=== PATIENT | female | born 1965 | race Caucasian/White ===

== ENCOUNTER 2021-06-12 09:35 | Emergency (ER) | payer OTHER, SELFPAY ==
--- NOTE | ~2021-06-12 | XR_ITS ---
EXAMINATION: XR KNEE, LEFT CLINICAL INFORMATION: Knee pain. COMPARISON: None TECHNIQUE: Four views of the left knee. FINDINGS: The tricompartment joint space is maintained normal. There is no visible fracture, dislocation or loose bodies. No joint effusion seen. The soft tissues are normal. XR/XR knee LT 3V IMPRESSION: Unremarkable left knee exam.
[2021-06-12 09:40] VITALS: BP 156/84; PULSE 72; RESP 19; TEMP 36.6; O2SAT 99; BMI 32.8
--- NOTE | 2021-06-12 11:08 | ED_ITS ---
HPI - General Adult General Chief complaint: Extremity Injury, Lower Stated complaint: knee pain Time Seen by Provider: 06/12/21 11:08 Source: patient Limitations: no limitations History of Present Illness HPI narrative: Patient presents the ER with atraumatic left knee pain. Pain increases with ambulation and going up the stairs. Patient states symptoms have been ongoing for some time now. Pain is aching in nature. Pain 6/10. Patient does take Percocet regularly for chronic back pain. Patient has a planned follow-up for the knee. No other complaints at this time symptoms are [id number]. Related Data Previous Rx's Medication Instructions Recorded naproxen 500 mg tablet 500 mg PO BID PRN #20 tab 06/12/21 Allergies Allergy/AdvReac Type Severity Reaction Status Date / Time No Known Allergies Allergy Unverified 03/07/20 18:42 Review of Systems Constitutional: Constitutional: Denies body ache(s), Denies chills, Denies fever(s) and Denies headache(s) ENT: Denies headache(s) Cardiovascular: Cardiovascular: Denies chest pain and Denies dyspnea Respiratory: Respiratory: Denies dyspnea Gastrointestinal: Gastrointestinal: Denies nausea and Denies vomiting Musculoskeletal: Musculoskeletal: Reports arthralgias Comments: Left knee pain Neurologic: Denies headache(s) [facility] Past Medical History Attestation statement: The following information was validated with the patient. Medical History Asthma Depression High cholesterol Social History Social History Advance Directives: No Advance Directives Information Provided: Yes Patient : No Physical Exam Vital Signs: Vital Signs: Last Vital Signs Temp 98 F 06/12/21 09:40 Pulse 72 06/12/21 09:40 Resp 19 06/12/21 09:40 BP 156/84 H 06/12/21 09:40 Pulse Ox 99 06/12/21 09:40 BMI result Body Mass Index 32.8 vital signs have been reviewed as normal and appeared to be correct. Blood pressure normal. Heart rate normal. Respiration rate normal. Temperature normal. Oxygen saturation normal. Appearance: Alert. Oriented X3. No acute distress. Head: Normal external exam. Normocephalic. Atraumatic. Eyes: PERRLA. EOMI. Conjunctiva and sclera normal. Eyelids normal. ENT: Pharynx normal. Uvula midline. Moist mucous membranes. Neck: Soft full range of motion, no JVD CVS: Heart regular rate and rhythm no murmurs and rubs Respiratory: Breath sounds are clear to auscultation bilaterally. No accessory muscle use noted. Back: Full range of motion noted. Skin: Skin warm and dry. Normal skin color. No erythema noted in the left knee Extremities: Positive joint line tenderness left knee no crepitus positive range of motion no obvious effusion noted Neuro: Oriented X 3. No motor deficit. No sensory deficit. Reflexes normal. Course Course Course Narrative: Left knee arthritis Left knee pain Gouty arthritis Osteoarthritis Symptoms are consistent with chronic knee pain patient has planned follow-up with specialist. Patient is already on analgesics for chronic back pain. Will add Naprosyn at this time. Medical Decision Making Imaging Data knee: Radiologist's impression: [address] [address] XRay Report Signed Patient: Kadi Matthews MR#: [id number] : 1965 Acct:[id number] Age/Sex: 56 / F ADM Date: 06/12/21 Loc: HO.ED Attending Dr: Ordering Physician: Generic ED Physician Date of Service: 06/12/21 Procedure(s): XR knee LT 3V Accession Number(s): [id number] cc: Generic ED Physician~ EXAMINATION: XR KNEE, LEFT CLINICAL INFORMATION: Knee pain.? COMPARISON: None? TECHNIQUE: Four views of the left knee. FINDINGS: The tricompartment joint space is maintained normal. There is no visible fracture, dislocation or loose bodies. No joint effusion seen. The soft tissues are normal.? XR/XR knee LT 3V IMPRESSION: Unremarkable left knee exam. ? Dictated By: Gabe Bennett MD Signed By: <Electronically signed by Gabe Bennett MD in OV> 06/12/21 1005 DD/ 1001 TD/TT:? Gis Geographer: [facility] [place] Discharge Plan Discharge Clinical Impression: Knee pain Patient Disposition: Home, Self-Care Instructions: Knee Pain (ED) Additional Instructions: Rest ice elevation follow-up with her doctor as planned. Prescriptions: New naproxen 500 mg tablet 500 mg PO BID PRN (Reason: pain) Qty: 20 RF: 0
== END 2021-06-12 12:31 | disposition home or self-care (01) ==
LOC: HO.ED 11:21
PROVIDERS: Emergency Provider Emergency Medicine
DX: M25.562 Pain in left knee (principal); G89.29 Other chronic pain; M54.9 Dorsalgia, unspecified; Z79.891 Long term (current) use of opiate analgesic
CPT/HCPCS: 73562; 99283

== ENCOUNTER 2021-07-01 | Outpatient (REF) | payer OTHER, SELFPAY ==
[2021-07-01 13:55] LABS: Binax Internal Control QC Valid; Binax Now Covid-19 Ag Negative (Negative)
== END 2021-07-01 00:01 ==
LOC: HO.LAB
PROVIDERS: Visit Provider Internal Medicine
DX: Z20.822 Contact with and (suspected) exposure to COVID-19 (principal)
CPT/HCPCS: C9803

== ENCOUNTER 2022-01-12 13:15 | Emergency (ER) | payer OTHER, SELFPAY ==
--- NOTE | ~2022-01-12 | XR_ITS ---
EXAMINATION: XR KNEE, RIGHT CLINICAL INFORMATION: Pain after falling COMPARISON: None TECHNIQUE: Four views of the right knee. FINDINGS: There is no fracture, dislocation or destructive lesion or joint effusion. XR/XR knee RT 4V IMPRESSION: Negative
[2022-01-12 13:31] VITALS: BP 134/83; PULSE 87; RESP 18; TEMP 37; O2SAT 98; BMI 29.8
--- NOTE | 2022-01-12 17:30 | ED_ITS ---
HPI - General Adult General Chief complaint: General Medical Stated complaint: Injuries to both legs Time Seen by Provider: 01/12/22 14:53 Source: patient Mode of arrival: ambulatory Limitations: no limitations History of Present Illness HPI narrative: 56 y/o female with history of chronic pain on chronic opiates, asthma, depression, HLD who presents to the ER with 1 week of bilateral knee pain R>L after slipping and falling in the shower. She reports chronic left knee pain and has had surgery on that knee in the past at [facility]. She states the pain in her right knee is in the middle and back of her knee, and is worse at night when she tries to go to sleep. She has been ambulating well. She has been taking her prescribed percocet for pain. She reports no relief with tylenol or naproxen. MD complaint: knee pain Onset (ago): week(s) (1) Location: left, right and lower extremity Radiation: non-radiation Severity: moderate Severity scale (1-10): 6 Quality: aching Pain Consistency: constant Relieving factors: none Exacerbating factors: movement and other (nighttime) Associated symptoms: denies other symptoms Treatments prior to arrival: none Related Data Previous Rx's Medication Instructions Recorded naproxen 500 mg tablet 500 mg PO BID PRN pain #20 tabs 06/12/21 ibuprofen 600 mg tablet 600 mg PO Q8H PRN pain #20 tabs 01/12/22 Allergies Allergy/AdvReac Type Severity Reaction Status Date / Time No Known Allergies Allergy Unverified 03/07/20 18:42 Review of Systems Review of Systems: Constitutional: No Fever, No Chills ENT/Mouth: No sore throat, No Rhinorrhea Cardiovascular: No Chest Pain, No SOB Gastrointestinal: No Nausea, No Vomiting Musculoskeletal: + joint pain, No Myalgias Skin: No Skin Lesions, No rash Neuro: No Weakness, No Numbness Heme/Lymph: No Bruising, No Lymphadenopathy PMFSH Past Medical History Medical History Asthma Depression High cholesterol Social History Social History Advance Directives: No Advance Directives Information Provided: No Physical Exam ED Vital Signs: Vital Signs - 24 hr 01/12/22 13:31 Temperature 98.6 F Pulse Rate 87 Respiratory Rate 18 Blood Pressure 134/83 Pulse Oximetry 98 Oxygen Delivery Method Room Air BMI result Body Mass Index 29.8 Appearance: Alert. Oriented X3. No acute distress. HEENT: pupils pinpoint otherwise normal to inspection CVS: Normal heart rate and rhythm. Pulses normal. Respiratory: No respiratory distress. Skin: Skin warm and dry. Normal skin color. Normal skin turgor. No rashes. Extremities: normal inspection of the bilateral knees. negative anterior drawer, varus/valgus negative. tenderness of the medial joint line. no palpable masses in the popliteal fossa. no calf tenderness or swelling. distal pulses 2+ Neuro: Oriented X 3. No motor deficit. No sensory deficit. Steady gait. Course Course Course Narrative: 56 yo female presenting wtih bilateral knee pain R>L after she slipping and fell in the bathtub last week. Exam is unremarkable without any obvious swelling or deformity. No appreciated joint laxity. Her XR is normal. No clincial evidence of DVT. She has an orthopedic provider at [facility] and was encouraged to f/u with them. She is ambulatory. Will give trial of NSAID and refer to Ortho. Stable for d/c home. Critical Care Time Critical Care Time Critical Care Time: No Discharge Plan Discharge Clinical Impression: Knee pain, right Patient Disposition: Home, Self-Care Instructions: Knee Pain (ED) Additional Instructions: Your x-ray today was normal. Recommend trial of ibuprofen 600 mg every 6 hours - take with food. Recommend icing the area several times per day and elevating your knee when possible. Follow up with your Orthopedic provider at [facility] in [place]. If you are unable to see them, call the Orthopedic provider below to arrange to be seen. If you develop new or worsening symptoms call 911 or come back to the ER for further evaluation. Prescriptions: New ibuprofen 600 mg tablet 600 mg PO Q8H PRN (Reason: pain) Qty: 20 0RF No Action naproxen 500 mg tablet 500 mg PO BID PRN (Reason: pain) Qty: 20 0RF Referrals: Alan Hernandez MD [Physician] - (right knee pain) Interventions: ED Discharge Assessment Last Done: 01/12/22 18:02 Discharge Date/Time: 01/12/22 18:03
== END 2022-01-12 18:03 | disposition home or self-care (01) ==
PROVIDERS: Emergency Provider Emergency Medicine; PCP Internal Medicine
DX: S89.91XA Unspecified injury of right lower leg, initial encounter (principal); M79.605 Pain in left leg; M79.604 Pain in right leg; M25.561 Pain in right knee; W18.2XXA Fall in (into) shower or empty bathtub, initial encounter; Y93.E1 Activity, personal bathing and showering; Y92.002 Bathroom of unspecified non-institutional (private) residence as the place of occurrence of the external cause; Y99.9 Unspecified external cause status; Z79.899 Other long term (current) drug therapy
CPT/HCPCS: 73564; 99282; 99283

== ENCOUNTER 2024-06-22 10:33 | Emergency (ER) | payer OTHER, SELFPAY ==
--- NOTE | ~2024-06-22 | XR_ITS ---
EXAMINATION: XR LUMBOSACRAL SPINE CLINICAL INFORMATION: low back pain COMPARISON: None available. TECHNIQUE: Three views of the lumbosacral spine. FINDINGS: There is normal lumbar lordosis. The vertebral heights, alignment and disc heights are normal. There is no visible acute fracture, dislocation or lytic process seen. The paravertebral soft tissues are normal. SI joints are normal. The soft tissues are normal. There is evidence of previous tubal ligation XR/XR lumbar spine 2-3V IMPRESSION: Unremarkable lumbar spine exam. Electronically signed by: Gabe Bennett MD 06/22/2024 02:06 PM DORA
[2024-06-22 10:40] VITALS: BP 125/88; PULSE 99; RESP 16; TEMP 37; O2SAT 99; BMI 29.1
--- NOTE | 2024-06-22 13:09 | ED.GENADULT ---
HPI - General Adult General Chief complaint: Back Pain/Injury Stated complaint: back and leg pain Time Seen by Provider: 06/22/24 12:30 Source: patient Mode of arrival: ambulatory Limitations: no limitations History of Present Illness ED Provider: Lester Coronado HPI narrative: 59-year-old female history of high cholesterol, asthma, chronic knee pain presents to ED for chronic back pain exacerbation radiating down left leg. Patient denies any recent trauma, urinary/bowel incontinence, any history of IV drug use. Patient states having symptoms for the past 6 days. Patient states long time ago she was supposed to have surgery or her back but it was postponed. Patient denies any new trauma, fever, chills, nausea, vomiting, flank pain, or any urinary symptoms. Related Data Previous Rx's ?Medication ?Instructions ?Recorded naproxen 500 mg tablet 500 mg PO BID PRN pain #20 tabs 06/12/21 ibuprofen 600 mg tablet 600 mg PO Q8H PRN pain #20 tabs 01/12/22 cyclobenzaprine 10 mg tablet 10 mg PO BEDTIME PRN muscle spasm 06/22/24 #7 tabs ketorolac 10 mg tablet 10 mg PO Q6H PRN pain 5 days #20 06/22/24 tabs Allergies Allergy/AdvReac Type Severity Reaction Status Date / Time No Known Allergies Allergy Unverified 06/22/24 10:43 Review of Systems Review of Systems: Back pain radiating down left leg Yes all other systems are reviewed and are negative [facility] Past Medical History Medical History Asthma Depression High cholesterol Physical Exam ED Vital Signs: Vital Signs - 24 hr 06/22/24 10:40 06/22/24 16:13 06/22/24 16:45 Temperature 98.6 F 97.1 F 97.1 F Pulse Rate 99 59 59 Respiratory Rate 16 16 16 Blood Pressure 125/88 145/79 H 145/79 H Pulse Oximetry 99 97 97 Oxygen Delivery Method Room Air Room Air Room Air BMI result Body Mass Index 29.1 Const General: cooperative, healthy appearing, comfortable, no acute distress, well developed, alert, awake and Physically active Orientation/consciousness: patient oriented x3 HENMT Head: Yes normal to inspection, Yes No palpable skull fracture present, Yes normocephalic and Yes atraumatic Eyes General: appearance normal, both eyes and all related structures Neck Neck: Yes normal visual inspection, Yes full ROM, Yes no lymphadenopathy, Yes no meningeal signs, Yes trachea midline, Yes supple, No anterior neck swelling and No tender Chest Chest palpation & inspection: normal inspection of the chest and normal palpation of entire chest wall Resp Effort & Inspection: normal respiratory effort and able to speak in complete sentences Auscultation: clear to auscultation bilaterally Cardio Jugular venous distension: no JVD Heart sounds: S1 normal heart sound present and S2 normal heart sound present GI Inspection: Yes normal to inspection Palpation (GI): Soft to palpation, not firm, nontender, no guarding and not rigid General: Yes no CVA tenderness Back/Spine/Pelvis Back: no CVA tenderness and back tenderness (Lumbar spine) Skin General skin exam: no rashes or lesions noted, elasticity normal and turgor normal Neuro General: patient oriented x3, gait normal, tone normal, moves all extremities, Normal light touch and pain sensation, no meningeal signs, no focal motor deficits, CN's II-XI intact bilaterally and normal sensation to monofilament Extrem General: Yes normal to inspection, Yes full ROM and Yes capillary refill normal Psych Appearance: grossly normal, well kempt and not disheveled Medications Administered Discontinued Medications Generic Name Dose Route Start Last Admin Trade Name Freq PRN Reason Stop Dose Admin Ketorolac Tromethamine 30 mg 06/22/24 13:07 06/22/24 14:14 Ketorolac Tromethamine 30 Mg/Ml Vial IM 06/22/24 13:08 30 mg ONCE ONE Administration Oxycodone HCl 5 mg 06/22/24 13:07 06/22/24 14:15 Oxycodone Hcl Immed Release 5 Mg Tablet PO 06/22/24 13:08 5 mg ONCE ONE Administration Prednisone 40 mg 06/22/24 13:07 06/22/24 14:16 Prednisone 20 Mg Tablet PO 06/22/24 13:08 40 mg ONCE ONE Administration Medical Decision Making Medical Decision Making MDM Narrative: 59-year-old female history of chronic back pain presents to ED for back pain exacerbation for the past 6 days without any trauma radiating down left leg. Patient denies any urinary/bowel incontinence, IV drug use, any history of immunocompromise diseases, or any genital numbness. Lumbar spine x-ray pain meds ordered. 4:23pm: Lumbar spine x-ray came back normal. UA negative for blood or UTI. Not suspecting cauda equinus syndrome, epidural abscess, osteomyelitis, kidney stones, UTI, fracture, pyelonephritis,DVT, or any other life-threatening etiology. Patient explained worrisome signs and informed to return to the ED immediately. Differential Diagnosis Differential Diagnoses: The differential diagnosis associated with the presentation includes (Sciatica, lumbar radiculopathy, back pain) Admission/Observation Consideration of admission/observation: Escalation of care including admission/observation considered Lab Data MDM Lab Attestation statement: I reviewed the patient's lab results. Labs: Lab Results 06/22/24 Range/Units 15:06 Urine Color Yellow Urine Appearance Clear Urine pH 5.5 (5.0-9.0) Ur Specific [place] 1.015 (1.005-1.025) Urine Protein Negative (Neg-Trace) mg/dL Urine Glucose (UA) Negative (Negative) mg/dL Urine Ketones Negative (Negative) mg/dL Urine Blood Negative (Negative) Urine Nitrite Negative (Negative) Ur Leukocyte Esterase Negative (Negative) Independent Interpretation I performed an independent interpretation of an: Plain X-Ray Radiology Impression Discussion of test interpretation with radiology: I have reviewed the radiologist's reading. Independent Historian Clinical information obtained from an independent historian. History obtained from or confirmed by: Other (Patient) External Record Review External record reviewed: Other (Prior vists) Prescription Management I considered prescription management with: Pain Medication Discharge Plan Discharge Clinical Impression: Sciatica Patient Disposition: Home, Self-Care Instructions: Sciatica (ED), Back Pain (ED) Additional Instructions: Recommend follow-up with with primary care provider. Return to the ED immediately for any severe back pain, urinary/bowel incontinence, paralysis/tingling/weakness of lower extremities, abdominal pain, nausea, vomiting, flank pain, fever, chills, dysuria, hematuria, chest pain, headache, dizziness, or any other concerning symptoms. Do not take any other NSAIDs while taking ketorolac. FINDINGS: There is normal lumbar lordosis. The vertebral heights, alignment and disc heights are normal. There is no visible acute fracture, dislocation or lytic process seen. The paravertebral soft tissues are normal. SI joints are normal. The soft tissues are normal. There is evidence of previous tubal ligation XR/XR lumbar spine 2-3V IMPRESSION: Unremarkable lumbar spine exam. Electronically signed by: Gabe Bennett MD 06/22/2024 02:06 PM EST Prescriptions: New ketorolac 10 mg tablet 10 mg PO Q6H PRN (Reason: pain) 5 Days Qty: 20 0RF Rx Instructions: Received 30mg IM ordered cyclobenzaprine 10 mg tablet 10 mg PO BEDTIME PRN (Reason: muscle spasm) Qty: 7 0RF Rx Instructions: Side effects drowsiness. Do not take at work or while driving. No Action ibuprofen 600 mg tablet 600 mg PO Q8H PRN (Reason: pain) Qty: 20 0RF naproxen 500 mg tablet 500 mg PO BID PRN (Reason: pain) Qty: 20 0RF Stand Alone Forms: Work/School Release Interventions: ED Discharge Assessment Last Done: 06/22/24 16:45 Discharge Date/Time: 06/22/24 16:45 Print Language: Norwegian
[2024-06-22] MEDS: Ketorolac Tromethamine 30 MG/ML VIAL IM (14:14)
[2024-06-22] MEDS: oxyCODONE HCl Immed Release 5 MG TABLET PO (14:15)
[2024-06-22] MEDS: predniSONE 20 MG TABLET 40 MG PO (14:16)
[2024-06-22 15:12] LABS: Appearance Urine Clear; Color Urine Yellow; Glucose Urine UA Negative (Negative); Leukocyte Esterase Urine Negative (Negative); Nitrite Urine Negative (Negative); PH 5.5 (5.0-9.0); Specific Gravity - Urine 1.015 (1.005-1.025); Urine Blood Negative (Negative); Urine Ketones Negative (Negative); Urine Protein Negative (Neg-Trace)
[2024-06-22 16:13] VITALS: BP 145/79; PULSE 59; RESP 16; TEMP 36.2; O2SAT 97
[2024-06-22 16:45] VITALS: BP 145/79; PULSE 59; RESP 16; TEMP 36.2; O2SAT 97
== END 2024-06-22 16:45 | disposition home or self-care (01) ==
PROVIDERS: Physician Assistant; Emergency Provider Emergency Medicine; PCP Internal Medicine
DX: M54.42 Lumbago with sciatica, left side (principal); M79.605 Pain in left leg; M25.562 Pain in left knee
CPT/HCPCS: 72100; 81003; 96372; 99284; J1885

== ENCOUNTER → 2024-06-22 13:07 | Outpatient (BNV) | payer OTHER, SELFPAY | PROVIDERS: Emergency Provider Emergency Medicine; PCP Internal Medicine; Visit Provider Radiology Diagnostic Radiology | DX: M54.50 Low back pain, unspecified (principal) | CPT/HCPCS: 72100 ==